=== PATIENT | female | born 1960 | race Caucasian/White ===

== ENCOUNTER → 2016-11-06 | Day surgery (SDC) | payer MEDICARE, MEDICAID ==
[~2016-11-06] VITALS: Ht 162.5 cm; Wt 87.5 kg
[~2016-11-06] MED LIST: ATIVAN1 MG PO; EFFEXOR25 MG PO; LEVOTHYROXIN0.025 MG PO; MOTRIN800 MG PO; SKELAXIN800 MG PO
--- NOTE | ~2016-11-06 | O ---
[place], [place] OPERATIVE NOTE NAME: TAZ MCKINNON UNIT #: [id number] ROOM: DOCTOR: TIFFANY MCGREGOR MD BIRTHDATE: [birth year] DOS: 11/06/2016 GASTROENDOSCOPIC REPORT INDICATIONS: The patient is a 56-year-old who has presented with chief complaint of colonic screening. ALLERGIES: No known medication. FAMILY HISTORY: Noncontributory. PAST SURGICAL HISTORY: Tonsillectomy, left breast benign biopsy, right ankle repair. PAST MEDICAL HISTORY: Gastritis, on omeprazole; hypothyroidism. SOCIAL HISTORY: Nonsmoker, nonalcohol consumer. Drinking water carbonated soda daily. PROCEDURE: Today's procedure part of investigation is colonoscopy. PREMEDICATION: Versed and Diprivan. SCOPE: Olympus forward-viewing colonoscope 10L video. REPORT: After putting the patient in the left lateral position and after application of lubricant to the scope, the scope was introduced. Thereafter, under direct visualization, I advanced through the length of colon without difficulty. Diverticulosis was appreciated. Base of the cecum explored, appendiceal orifice identified, and ileocecal valve was defined. A small lipomatous polyp also along the length of the ascending colon noticed of no significance. Scattered diverticulosis even extending to right colon, transverse colon and sigmoid colon was identified. The patient extubated, tolerated the procedure well. IMPRESSION: Diverticulosis coli, otherwise, lipomatous polyp without biopsy. PLAN AND DISCUSSION: High-fiber diet. Activity, ad-zora. The patient was advised to have routine followup with you in office, p.r.n. visit with us in [facility]. I thank you very much again for your kind referral. Sincerely, [place], [place] OPERATIVE NOTE NAME: TAZ MCKINNON UNIT #: [id number] ROOM: DOCTOR: TIFFANY MCGREGOR MD BIRTHDATE: [birth year] TIFFANY MCGREGOR MD CM:OPRECORD:OPERATIVE NOTE [id number] VIJAY MCGREGOR MD 11/06/16 [id number] interface
[2016-11-06 11:00] VITALS: BP 135/75
[2016-11-06 11:50] VITALS: BP 104/56
[2016-11-06 12:05] VITALS: BP 128/67
[2016-11-06 12:20] VITALS: BP 122/71
== END | disposition home or self-care (01) ==
LOC: SDC 10-31 11:00
DX: Z12.11 Encounter for screening for malignant neoplasm of colon (principal); K63.5 Polyp of colon; K57.30 Diverticulosis of large intestine without perforation or abscess without bleeding; E03.9 Hypothyroidism, unspecified; F41.9 Anxiety disorder, unspecified; F32.9 Major depressive disorder, single episode, unspecified; Z80.9 Family history of malignant neoplasm, unspecified; Z82.49 Family history of ischemic heart disease and other diseases of the circulatory system; Z98.890 Other specified postprocedural states
CPT/HCPCS: 00810; G0121

== ENCOUNTER 2023-06-22 09:47 | Emergency (ER) | payer BC, MEDICARE, MEDICAID ==
[~2023-06-22] VITALS: Ht 162.5 cm; Wt 102.1 kg
[2023-06-22] MEDS ORDERED: MELOXICAM15 MG PO (11:21)
== END 2023-06-22 11:54 | disposition home or self-care (01) ==
LOC: ED 09:47
DX: S93.402A Sprain of unspecified ligament of left ankle, initial encounter (principal); Z90.89 Acquired absence of other organs; Z90.12 Acquired absence of left breast and nipple; Z98.890 Other specified postprocedural states; W17.89XA Other fall from one level to another, initial encounter; Y93.89 Activity, other specified; Y92.89 Other specified places as the place of occurrence of the external cause; Y99.8 Other external cause status

== ENCOUNTER → 2023-08-06 | Outpatient (CLI) | payer BC, MEDICARE, MEDICAID ==
[~2023-08-06] MED LIST changes: +MELOXICAM15 MG PO
== END | disposition home or self-care (01) ==
LOC: LAB 11:39
PROVIDERS: ATTEND Family Medicine
DX: N18.30 Chronic kidney disease, stage 3 unspecified (principal)

== ENCOUNTER → 2024-02-26 | Outpatient (CLI) | payer MEDICARE, MEDICAID ==
[2024-02-26 10:26] LABS: HEMATOCRIT 38.3 % (37.0-47.0); MEAN CELL VOLUME 90.1 fl (81.0-99.0); MEAN CORPUSCULAR HGB 31.3 pg (27.0-31.0); MEAN CORPUSCULAR HGB CONC 34.7 g/dl (33.0-37.0); MEAN PLATELET VOLUME 9.1 fl (9.6-12.3); RED BLOOD COUNT 4.25 10*6/uL (4.10-5.10); RED CELL DISTRI WIDTH 14.6 % (0-14.5); WHITE BLOOD COUNT 8.3 10*3/uL (4.8-10.8)
[2024-02-26 11:10] LABS: FREE T4 1.02 ng/dl (0.89-1.76); POTASSIUM 3.9 mmol/L (3.4-5.1); TOTAL PROTEIN 7.7 gm/dL (6.0-8.0)
== END | disposition home or self-care (01) ==
LOC: LAB 09:45
PROVIDERS: ATTEND Family Medicine
DX: I10 Essential (primary) hypertension (principal); E03.9 Hypothyroidism, unspecified; E78.00 Pure hypercholesterolemia, unspecified

== ENCOUNTER → 2024-05-31 | Outpatient (CLI) | payer MEDICARE, MEDICAID ==
[2024-05-31 11:23] LABS: HEMATOCRIT 37.5 % (37.0-47.0); MEAN CELL VOLUME 92.8 fl (81.0-99.0); MEAN CORPUSCULAR HGB 31.4 pg (27.0-31.0); MEAN CORPUSCULAR HGB CONC 33.9 g/dl (33.0-37.0); MEAN PLATELET VOLUME 8.7 fl (9.6-12.3); RED BLOOD COUNT 4.04 10*6/uL (4.10-5.10); RED CELL DISTRI WIDTH 13.4 % (0-14.5); WHITE BLOOD COUNT 10.4 10*3/uL (4.8-10.8)
[2024-05-31 11:46] LABS: FREE T4 1.4 ng/dl (0.89-1.76); POTASSIUM 3.5 mmol/L (3.4-5.1); TOTAL PROTEIN 7.8 gm/dL (6.0-8.0)
[2024-05-31 11:55] LABS: VITAMIN D, 25-HYDROXY 42.6 ng/mL (30-100)
== END | disposition home or self-care (01) ==
LOC: LAB 10:51
PROVIDERS: ATTEND Family Medicine
DX: R53.83 Other fatigue (principal); E55.9 Vitamin D deficiency, unspecified; Z79.899 Other long term (current) drug therapy